=== PATIENT | female | born 1980 | race African-American/Black ===

== ENCOUNTER 2017-05-01 23:52 | Emergency (ER) | payer OTHER ==
[~2017-05-01] VITALS: Ht 165.1 cm; Wt 65.8 kg
[~2017-05-01 23:52] MED LIST: ALBUTEROL0.09 MG/A1 INH; CIPRO 500MG TA500 MG PO; IBUPROFEN800 MG PO; MOTRIN 600 MG600 MG PO; PREDNISONE 20MG20 MG PO; TESSALON PERLE100 MG PO; VICODIN5-300 PO; ZITHROMAX250 MG PO; ZOFRAN ODT4 MG PO
[2017-05-02 00:26] VITALS: BP 108/73
[2017-05-02] MEDS ORDERED: CHILD IBUP100 MG/5 M PO (00:59)
[2017-05-02] MEDS ORDERED: magic mouthwash PO (00:59)
[2017-05-02] MEDS ORDERED: ORAPRED ODT15 M1 PO (00:59)
[2017-05-02] MEDS ORDERED: ZITHROMAX200 MG/52 PO (00:59)
[2017-05-02] MEDS ORDERED: OXYCODONE H5 MG/5 M2 PO (01:01)
--- NOTE | 2017-05-02 01:03 | ED THROAT/DENTAL COMPLAINT ---
See Addendum History of Present Illness General Chief Complaint: Sore Throat, Dental Pain Stated Complaint: SORE THROAT X'S 5 DAY'S Source: patient, old records Exam Limitations: no limitations Vital Signs & Intake/Output Vital Signs & Intake/Output Vital Signs Date Time Temp Pulse Resp B/P B/P Pulse O2 O2 Flow FiO2 Mean Ox Delivery Rate 05/02 0026 98.7 114 18 108/73 98 Room Air Allergies Coded Allergies: MDX - Amoxicillin (AMOXICILLIN) (UNKNOWN 05/02/17) MDX - Cat Hair Extract (Cat Hair Extract) (UNKNOWN 05/02/17) Reconcile Medications Azithromycin (Zithromax) 200 MG/5 ML SUSP.RECON 0 PO SEE RATE tonsillopharyngitis 11 ml day one then 6 ml for 4 days Ibuprofen (Child Ibuprofen) 100 MG/5 ML ORAL.SUSP 30 ML PO Q6P PRN pain [magic mouthwash] 5-10 ML PO Q6P PRN tonsillitis 1:1:1=maalox:viscous lidocaine:benadryl Oxycodone HCl 5 MG/5 ML SOLUTION 5-10 ML PO Q6P PRN severe pain Prednisolone Sod Phosphate (Orapred Odt) 15 MG TAB.RAPDIS 1 TAB PO BID tonsillopharyngitis place on top of the tongue where it will dissolve, then swallow Triage Note: TRIAGE: PATIENT TO ER FORM HOME REPORTS +SORE THROAT SINCE FRIDAY ON R SIDE THEN PROGRESSED TO L SIDE THROAT ON FRIDAY. PAIN CONSTANT 7/10 SINCE. +PRODUCTIVE COUGH W/ PHELEM. DENIES SOB, NO ACUTE DISTRESS NOTED. SPEECH CLEAR. 02:98%RA. Triage Nurses Notes Reviewed? yes Onset: Last week Duration: day(s):, constant, continues in ED, getting worse Timing: recent history Injury Environment: home Severity: severe No Modifying Factors: none Associated Symptoms: cough LMP (ages 10-50): unknown : No Patient currently breastfeeds: No HPI: 5 days prior to admission patient complains of right and left-sided throat pain nonproductive cough chills. She denies fever chest pain shortness of breath headache dysuria rash bleeding . Past History Travel History Traveled to [place] past 21 day No Medical History Any Pertinent Medical History? 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 No Review of Systems Review of Systems Constitutional: Reports: see HPI, chills. EENTM: Reports: see HPI, throat pain. Respiratory: Reports: see HPI, cough. Cardiovascular: Reports: no symptoms. GI: Reports: no symptoms. Genitourinary: Reports: no symptoms. Musculoskeletal: Reports: no symptoms. Skin: Reports: no symptoms. Neurological/Psychological: Reports: no symptoms. Hematologic/Endocrine: Reports: no symptoms. Immunologic/Allergic: Reports: no symptoms. All Other Systems: Reviewed and Negative Physical Exam Physical Exam General Appearance: well developed/nourished, alert, awake, anxious, moderate distress Head: atraumatic, normal appearance Eyes: Bilateral: normal appearance, PERRL, EOMI. Ears: Bilateral: canal normal, Tympanic normal. 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 No Severe Sepsis Present: No Septic Shock Present: No Progress Differential Diagnosis: seun-tonsillar abscess, stomatitis/gingivitis, strep pharyngitis Plan of Care: Orders Procedure Date/time Status THROAT CULTURE W/QUICK STREP 05/02 29 Active Current Medications Sig/Nguyễn Start time Last Medication Dose Stop Time Status Admin Ibuprofen 600 MG ONCE ONE 05/02 100 UNVr (Motrin UDC) 05/02 101 Prednisolone 60 MG ONCE ONE 05/02 100 UNVr (Prelone) 05/02 101 Departure Departure Time of Disposition: 53 Disposition: HOME OR SELF CARE Condition: Stable Clinical Impression Primary Impression: Tonsillopharyngitis Referrals: PATIENT HAS NO PRIMARY CARE DR (PCP/Family) Departure Forms: Customer Survey General Discharge Information Prescriptions: Current Visit Scripts Prednisolone Sod Phosphate (Orapred Odt) 1 TAB PO BID #[address] top of the tongue where it will dissolve, then swallow Ibuprofen (Child Ibuprofen) 30 ML PO Q6P PRN pain #480 ML Azithromycin (Zithromax) 0 PO SEE RATE #35 ML 11 ml day one then 6 ml for 4 days [magic mouthwash] 5-10 ML PO Q6P PRN tonsillitis #270 ML 1:1:1=maalox:viscous lidocaine:benadryl Oxycodone HCl 5-10 ML PO Q6P PRN severe pain #90 ML
== END 2017-05-02 01:20 ==
LOC: ERH 23:52
DX: J02.9 Acute pharyngitis, unspecified (principal); F17.210 Nicotine dependence, cigarettes, uncomplicated
CPT/HCPCS: 87147; J2001; J2650